=== PATIENT | female | born 1955 | race Caucasian/White ===

== ENCOUNTER 2021-11-05 15:37 | Emergency (ER) | payer MEDICARE, BC, SELFPAY ==
[2021-11-05 15:57] VITALS: BP 184/70; PULSE 68; RESP 17; TEMP 36.9; O2SAT 100; BMI 23.6
--- NOTE | 2021-11-05 16:02 | HMH.EDUTC ---
[facility] [place] Impression: Thoracic back pain Disposition: Home, Self-Care Condition on Discharge: Good Instructions: DI for Thoracic Back Pain, Thoracic Back Pain Additional Instructions: Go home and rest. It would be best if you rested tomorrow too. No heavy lifting. No twisting. Take the oral medications as directed. The muscle relaxer (cyclobenzaprine--Flexeril) will make you drowsy, so don't drive or operate heavy machinery after taking it. Don't start the oral steroids (medrol dose pack) until tomorrow, since you had the shots in here today. Follow up with your regular doctor. GO TO THE ER FOR ANY WORSENING SYMPTOMS OR CONCERN, ESPECIALLY BOWEL OR BLADDER ISSUES, SADDLE AREA NUMBNESS, FEVER, ETC Prescriptions: Cyclobenzaprine HCl [Cyclobenzaprine 10mg Tab] 10 mg PO BIDP PRN #20 tab PRN Reason: Muscle Spasm Transmission Status: Received by [id number] methylPREDNISolone [Medrol] 4 mg PO DIRECTED 6 Days #21 packet Transmission Status: Received by [id number] Referrals: Jony Peoples [Primary Care Provider] - Time of Disposition: 16:17 Medical Decision Making - Medical Records Medical records reviewed: No: I reviewed the patient's medical records. - Jose Inquiry Pt receiving controlled substance: No Vital Signs: 11/05/21 15:57 11/05/21 16:19 Temperature 98.4 F 98.4 F Temperature Source Oral Oral Pulse Rate 64 Pulse Rate [Left Radial] 68 Respiratory Rate 17 18 Blood Pressure 168/85 H Blood Pressure [Right Arm] 184/70 H Blood Pressure Mean [Right Arm] 108 02 Sat by Pulse Oximetry 100 Oxygen Delivery Method Room Air Orders (Tests/Meds): ED MEDICATIONS Discontinued Medications Generic Name Dose Route Start Last Admin Trade Name Freq PRN Reason Stop Dose Admin Ketorolac Tromethamine 30 mg 11/05/21 16:01 11/05/21 16:07 Ketorolac 60mg/2ml Vial IM 11/05/21 16:02 30 mg ONCE ONE Administration Methylprednisolone Sodium Succinate 125 mg 11/05/21 16:01 11/05/21 16:07 Methylprednisolone Sod Succ 125mg Vial IM 11/05/21 16:02 125 mg ONCE ONE [place] [facility] [place] - General Stated complaint: back pain Time Seen by Provider: 11/05/21 16:00 Mode of Arrival: Ambulatory Source of Information: Patient Limitations: No Limitations Description of Symptoms (Recalled from Triage Doc. by RN): pt to [facility] c/o left sided posterior rib pain. pt states she puller her back getting out of the car yesterday. HEENT Symptoms (Recalled from RN notes): No Resp Symptoms (Recalled from RN notes): No Skin Symptoms (Recalled from RN notes): No MS Symptoms (Recalled from RN notes): Yes Functional Status (Recalled from RN notes): na - History of Present Illness Provider Complaint: She states that yesterday she stretched to get out of her car and she felt something pull in her left middle back area. Since then she has had pain in that area with movement and deep breathing. - Related Data Previous Rx's Medication Instructions Recorded Cyclobenzaprine HCl 10 mg PO BIDP PRN #20 tab 11/05/21 [Cyclobenzaprine 10mg Tab] methylPREDNISolone [Medrol] 4 mg PO DIRECTED 6 Days #21 11/05/21 packet Allergies Allergy/AdvReac Type Severity Reaction Status Date / Time No Known Allergies Allergy Verified 11/05/21 15:51 - Worker's Comp Is this a Worker's Comp case?: No [facility] History - Hepatitis A Screen Attestation statement:: This patient has been screened for Hepatitis A risk factors. I have reviewed the patient's past medical history: Yes ROS Obtained: Yes All systems reviewed & no additional complaints - Constitutional Constitutional: Denies chills, Denies fever(s) - Eyes Eyes: Denies eye discharge - ENT Ears, Nose, Mouth, and Throat: Denies dizziness, Denies otalgia, Denies sore throat - Cardiovascular Cardiovascular: Denies chest pain - Respiratory Respiratory: Denies chest congestion, Denies cough
[2021-11-05 16:19] VITALS: BP 168/85; PULSE 64; RESP 18; TEMP 36.9; O2SAT 100
== END 2021-11-05 16:20 | disposition home or self-care (01) ==
PROVIDERS: Emergency Provider Nurse Practitioner Family; PCP Internal Medicine
DX: M54.6 Pain in thoracic spine (principal)
CPT/HCPCS: 96372; 99212; G0463